=== PATIENT | female | born 1955 | race Asian ===

== ENCOUNTER 2023-06-25 10:08 | Day surgery (SDC) | payer MEDICARE, OTHER, SELFPAY ==
[2023-06-25 10:27] VITALS: BP 109/78; PULSE 73; RESP 16; TEMP 36.2; O2SAT 100; BMI 20.7
[2023-06-25] MEDS: LACTATED RINGERS 1,000 ML 200 ML IV (10:41)
--- NOTE | 2023-06-25 11:53 | PM.HP.1 ---
History of Present Illness History of Present Illness Date Patient Seen: 06/25/23 Time Patient Seen: 11:54 Chief complaint: SDC Narrative: 68-year-old woman here for screening colonoscopy. Her father had metastatic colon cancer. Last colonoscopy 6 years ago. No abdominal pain unintentional weight loss blood per rectum PFSH Social History household members: spouse Smoking Status: Never smoker alcohol intake: never Meds Home Medications and Allergies Home Medications Medication Instructions Recorded Confirmed Type gabapentin 300 mg tablet,extended 300 mg PO QPM 06/25/23 06/25/23 History release 24 hr Allergies Allergy/AdvReac Type Severity Reaction Status Date / Time grass pollen Allergy Mild Verified 06/25/23 10:23 Exam Vital Signs (past 8 hours): - 06/25/23 10:27 Temperature 97.1 F L Pulse Rate 73 Respiratory Rate 16 Blood Pressure 109/78 Pulse Oximetry 100 Oxygen Delivery Method Room Air Oxygen Delivery Method Room Air Narrative Exam Narrative: General thin adult woman alert oriented no acute distress Chest nonlabored respiration Abdomen soft nontender Assessment & Plan Assessment and plan (1) Family history of colon cancer: Status: Acute Assessment & Plan narrative: The patient requires colorectal screening and colonoscopy is recommended. Technical details were discussed. Risks, benefits, alternatives explained. Risks including but not limited to myocardial infarction, aspiration, bleeding, pain, missed lesion, incomplete examination, need for further radiographic studies, colonic perforation, and need for major abdominal surgery were discussed. All questions were answered to their satisfaction, and they are in agreement with this plan.
--- NOTE | 2023-06-25 12:23 | PM.OP.COLON ---
Operative Date/Time/Diagnoses Date of procedure: 06/25/23 Time of procedure: 12:23 Pre-op diagnosis: Family history of colon Post-op diagnosis: same Procedure & Clinicians Study performed: Colonoscopy Same procedure as scheduled: Yes Indications: Family history of colon cancer, colorectal screening Surgeon: Genaro Chen Procedure Notes Procedure in detail: The history and physical was performed/updated and the patient is ASA class is 2. The procedure was discussed in detail with the patient. Potential risks complications including infection, bleeding, missed diagnosis, perforation, need for surgery, and were explained. Their questions were answered and informed consent was obtained. Patient was brought to the procedure room and placed standard monitoring equipment. The patient's vital signs were monitored continuously throughout the entire procedure. Prior to starting time-out was performed. The patient was placed in the left lateral recumbent position. Procedural sedation was administered by anesthesia. Examination began with a thorough inspection of the perianal area there was no evidence of fissures, fistulae, external hemorrhoids or cutaneous malignancy. The colonoscopy scope was then placed into the anal canal and was advanced to the cecum, which was identified by the ileocecal valve, the appendiceal orifice and the confluence of the taenia. The scope was then slowly withdrawn examining colon thoroughly in all directions, irrigating it of any residual stool. No masses or polyps. Internal hemorrhoids on retroflexion within the rectum. The patient tolerated the procedure well. They will be discharged once criteria are met. The prep was of good/excellent quality. The withdrawl time was 7 minutes. Specimen(s): none sent Impression: Normal colonoscopy Post-procedure Recommendations: Colonoscopy in 5 years and High fiber diet Disposition: same day surgery
[2023-06-25 12:25] VITALS: BP 86/56; PULSE 65; RESP 19; TEMP 36.2; O2SAT 97
[2023-06-25 12:30] VITALS: BP 84/57; PULSE 62; RESP 16; O2SAT 97
[2023-06-25 12:35] VITALS: BP 74/55; PULSE 66; RESP 19; O2SAT 99
[2023-06-25 12:40] VITALS: BP 101/69; PULSE 62; RESP 22; O2SAT 100
[2023-06-25 12:41] VITALS: BP 101/73; PULSE 63; RESP 16; TEMP 36.4; O2SAT 100
== END 2023-06-25 13:28 | disposition home or self-care (01) ==
PROVIDERS: PCP Internal Medicine; Referring Provider Surgery; Visit Provider Surgery
PROC: 0DJD8ZZ Inspection of Lower Intestinal Tract, Via Natural or Artificial Opening Endoscopic (ICD-10-PCS; CPT 45378; principal; 2023-06-25 11:30)
DX: Z12.11 Encounter for screening for malignant neoplasm of colon (principal); Z80.0 Family history of malignant neoplasm of digestive organs; K64.8 Other hemorrhoids
CPT/HCPCS: G0105